=== PATIENT | female | born 2000 | race Caucasian/White ===

== ENCOUNTER 2019-03-16 12:29 | Emergency (ER) | payer SELFPAY ==
[2019-03-16 12:58] VITALS: BP 113/63
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
== END 2019-03-16 13:37 | disposition home or self-care (01) ==
LOC: JP.ED 12:29
DX: S61.432A Puncture wound without foreign body of left hand, initial encounter (principal); Z88.1 Allergy status to other antibiotic agents; Z88.5 Allergy status to narcotic agent; Z88.8 Allergy status to other drugs, medicaments and biological substances; Z79.899 Other long term (current) drug therapy; W26.0XXA Contact with knife, initial encounter; Y99.0 Civilian activity done for income or pay
CPT/HCPCS: 99282

== ENCOUNTER 2020-04-06 18:11 | Emergency (ER) | payer MEDICAID ==
[2020-04-06 18:45] VITALS: BP 126/76; PULSE 73
[2020-04-06] MEDS ORDERED: diphenhydrAMINE 50 MG/ML SDV IM ONE (19:01)
[2020-04-06] MEDS ORDERED: Ketorolac 60 MG/2 ML SDV IM ONE (19:01)
[2020-04-06] MEDS ORDERED: Prochlorperazine 10 MG/2 ML SDV IM ONE (19:01)
--- NOTE | 2020-04-06 19:09 | EDM.PDOC ---
ED HPI GENERAL MEDICAL PROBLEM - General Chief Complaint: Gastrointestinal Problem Stated Complaint: VOMITING, HEADACHE Time Seen by Provider: 04/06/20 18:50 Source of Information: Reports: Patient History Limitations: Reports: No Limitations - History of Present Illness INITIAL COMMENTS - FREE TEXT/NARRATIVE: Ifeoma is a 19 year old female presenting to Er today with acute onset of nausea at 1 am this morning and subsequent headache 30 minutes after onset of nausea. Patient has a history of migraine headaches which were previously treated with Imitrex but she had an allergic reaction including throat swelling. Patient continues to have migraine headaches but is normal able to control her symptoms by lying down with an ice pack and taking a nap usually resolves her symptoms. Current headache did not improve with routine self care. Patient has vomiting approximately 6 times today so has not attempted to take any OTC medications. Patient has chronic neck stiffness without new pain. She has chills and sweats without fever. Patient is currently undergoing work up and treatment for PCOS started BCP 2 weeks ago an anti-depressant. Patient had an ultrasound recent which confirmed PCOS diagnosis. - Related Data Allergies Allergy/AdvReac Type Severity Reaction Status Date / Time doxycycline Allergy Hives Verified 04/06/20 18:46 morphine Allergy Hives Verified 04/06/20 18:46 sumatriptan [From Imitrex] Allergy Airway Verified 04/06/20 18:46 Tightness Home Meds: Home Meds Sertraline [Zoloft] 1 tab PO DAILY 04/06/20 [History] norethindrone ac-eth estradioL [Maureen 21 1-20 Tablet] 1 tab PO DAILY 04/06/20 [ History] Past Medical History Other Respiratory History: Sport induced Asthma Gastrointestinal History: Reports: Cholelithiasis Genitourinary History: Reports: UTI, Recurrent [employer] History: Reports: Neurological History: Reports: Migraines Other Psychiatric History: Post Pardum Depression - Past Surgical History HEENT Surgical History: Reports: Oral Surgery GI Surgical History: Reports: None Neurological Surgical History: Reports: None Social & Family History - Family History Family Medical History: Noncontributory - Tobacco Use Smoking Status *Q: Never Smoker - Caffeine Use Caffeine Use: Reports: Coffee, Soda ED ROS GENERAL - Review of Systems Review Of Systems: Comprehensive ROS is negative, except as noted in HPI. - Physical Exam Exam: See Below Exam Limited By: No Limitations General Appearance: Alert, WD/WN, Moderate Distress (due to headache and nausea in a dark room) Eye Exam: Bilateral Eye: EOMI, Normal Inspection Ears: Hearing Grossly Normal Throat/Mouth: Normal Voice, No Airway Compromise Head Exam: Atraumatic, Normocephalic Neck: Tender Lateral (bilateral ) Respiratory/Chest: No Respiratory Distress, Lungs Clear Cardiovascular: Regular Rate, Rhythm GI/Abdominal: Other (limited exam due to body habitus) Neuro Exam (Abbreviated): Alert (photophobia noted), Oriented, CN II-XII Intact , Normal Cognition, Normal Gait, Normal Reflexes, No Motor/Sensory Deficits Extremities: Normal Inspection, Normal Range of Motion, Non-Tender Psychiatric: Normal Affect, Normal Mood Skin Exam: Warm, Dry, Intact, Normal Color, No Rash Course - Vital Signs Last Recorded V/S: Last Vital Signs Temp 36.4 C 04/06/20 18:52 Pulse 73 04/06/20 18:52 Resp 16 04/06/20 18:52 BP 126/76 04/06/20 18:52 Pulse Ox 100 04/06/20 18:52 - Orders/Labs/Meds Meds: Medications Discontinued Medications Generic Name Dose Route Start Last Admin Trade Name Freq PRN Reason Stop Dose Admin Diphenhydramine HCl 25 mg 04/06/20 19:01 04/06/20 19:11 Benadryl IM 04/06/20 19:02 25 mg ONETIME ONE Administration Ketorolac Tromethamine 60 mg 04/06/20 19:01 04/06/20 19:11 Toradol IM 04/06/20 19:02 60 mg ONETIME ONE Administration Prochlorperazine Edisylate 10 mg 04/06/20 19:01 04/06/20 19:11 Compazine IM 04/06/20 19:02 10 mg ONETIME ONE Administration - Re-Assessments/Exams Free Text/Narrative Re-Assessment/Exam: Headaches was much improved before discharge 04/06/20 20:23 Departure - Departure Time of Disposition: 19:10 Disposition: Home, Self-Care 01 Clinical Impression: Cephalgia - Discharge Information Instructions: Form - Headache Record, Migraine Headache Referrals: Roshni Lopez CNM [Primary Care Provider] - Forms: ED Department Discharge Additional Instructions: 1. DECREASED ACTIVITY X 24 HOURS 2. IBUPROFEN or NAPROXEN (WITH FOOD) as directed for headache and pain. 3. TYLENOL (ACETAMINOPHEN) 4000MG PER 24 HOUR (1000MG EVERY 6 HOURS) for mild pain and fever. 4. If headache reoccurs consider Ibuprofen 800 mg or Naproxen 440 to 500mg, zofran and Benadryl 50mg with a nap in a dark room. 5. CALL PCP THIS WEEK FOR AN APPOINTMENT TO DISCUSS YOUR HEADACHE IF CONTINUES GREATER THAN 72 hour. 6. RETURN FOR INCREASED SYMPTOMS, FEVER, CHANGE IN HEADACHES CHARACTER, NUMBNESS /TINGLING, CHANGING IN VISION, DEHYDRATION DUE TO FREQUENT VOMITING, ANY NEW CONCERNS OR CHANGES. Sepsis Event Note - Evaluation Sepsis Screening Result: No Definite Risk - Focused Exam Vital Signs: Vital Signs Temp Pulse Resp BP Pulse Ox 04/06/20 18:52 36.4 C 73 16 126/76 100 04/06/20 18:43 36.4 C 73 16 126/76 100 Date Exam was Performed: 04/06/20 Time Exam was Performed: 20:22
== END 2020-04-06 21:17 | disposition home or self-care (01) ==
LOC: JP.ED 18:11
DX: R51 Headache (principal); R11.2 Nausea with vomiting, unspecified; Z88.5 Allergy status to narcotic agent; Z88.8 Allergy status to other drugs, medicaments and biological substances; Z79.899 Other long term (current) drug therapy
CPT/HCPCS: 96372; 99284; J0780; J1200; J1885

== ENCOUNTER 2020-08-01 22:06 | Emergency (ER) | payer MEDICAID ==
[2020-08-01 22:26] VITALS: BP 153/95; PULSE 66
--- NOTE | 2020-08-01 23:00 | EDM.PDOC ---
ED HPI GENERAL MEDICAL PROBLEM - General Chief Complaint: Bite:Animal, Insect Stated Complaint: PAIN IN RT ARM/HAND Time Seen by Provider: 08/01/20 22:45 Source of Information: Reports: Patient History Limitations: Reports: No Limitations - History of Present Illness INITIAL COMMENTS - FREE TEXT/NARRATIVE: 20-year-old female had a small pimple on her right forearm, she tried to pop it yesterday but it is now become inflamed with a small amount of red streak extending away from the lesion. No fevers or chills. It is more tender and there is numbness extending down her arm. Onset: Gradual Duration: Day(s): (2 days) Location: Reports: Upper Extremity, Left Associated Symptoms: Reports: No Other Symptoms Left lower arm Pain Score (Numeric/FACES): 6 - Related Data Allergies Allergy/AdvReac Type Severity Reaction Status Date / Time doxycycline Allergy Hives Verified 08/01/20 22:46 morphine Allergy Hives Verified 08/01/20 22:46 sumatriptan [From Imitrex] Allergy Airway Verified 08/01/20 22:46 Tightness Home Meds: Home Meds NK [No Known Home Meds] 08/01/20 [History] Past Medical History Other Respiratory History: Sport induced Asthma Gastrointestinal History: Reports: Cholelithiasis Genitourinary History: Reports: UTI, Recurrent [employer] History: Reports: Neurological History: Reports: Migraines Other Psychiatric History: Post Depression - Past Surgical History HEENT Surgical History: Reports: Oral Surgery Social & Family History - Family History Family Medical History: Noncontributory - Tobacco Use Smoking Status *Q: Never Smoker - Caffeine Use Caffeine Use: Reports: Soda - Recreational Drug Use Recreational Drug Use: No ED ROS GENERAL - Review of Systems Review Of Systems: See Below Constitutional: Denies: Fever, Chills, Malaise Respiratory: Denies: Shortness of Breath Cardiovascular: Denies: Chest Pain GI/Abdominal: Denies: Nausea, Vomiting Skin: Reports: Erythema (As described in HPI) Neurological: Reports: Paresthesia (Some numbness in the left forearm) ED EXAM, ANIMAL BITE - Physical Exam Exam: See Below Exam Limited By: No Limitations General Appearance: Alert, No Apparent Distress Head: Atraumatic Respiratory/Chest: No Respiratory Distress Extremities: Other (The left forearm has a small inflamed papular lesion on the extensor surface of the forearm, with 2-1/2 to 3 cm of surrounding erythema and irritation. There is also 2 distinct lines of erythema extending from the lesion proximally to the elbow) Neurological: Alert, Oriented Psychiatric: Normal Affect, Normal Mood Course - Vital Signs Last Recorded V/S: Last Vital Signs Temp 97.4 F 08/01/20 22:45 Pulse 66 08/01/20 22:45 Resp 16 08/01/20 22:45 BP 153/95 H 08/01/20 22:45 Pulse Ox 97 08/01/20 22:45 - Re-Assessments/Exams Free Text/Narrative Re-Assessment/Exam: 08/01/20 22:58 Appears this patient is some lymphangitis from her manipulation of the small infected hair follicle. She will be placed on Augmentin 875 mg twice daily for 5 days, warm compresses to the area will help but she can recheck in 2 to 3 days if not improving. Departure - Departure Time of Disposition: 23:25 Disposition: Home, Self-Care 01 Clinical Impression: Acute lymphangitis of forearm - Discharge Information Instructions: Cellulitis, Adult Referrals: Roshni Lopez CNM [Primary Care Provider] - Forms: ED Department Discharge Care Plan Goals: Take 1 dose of antibiotic twice daily for 5 days, with food. Warm moist compresses on the infected area will help. Recheck in 2 to 3 days if not improving satisfactorily. Sepsis Event Note (ED) - Evaluation Sepsis Screening Result: No Definite Risk - Focused Exam Vital Signs: Vital Signs Temp Pulse Resp BP Pulse Ox 08/01/20 22:45 97.4 F 66 16 153/95 H 97 08/01/20 22:24 97.4 F 66 16 153/95 H 97
== END 2020-08-01 23:25 | disposition home or self-care (01) ==
LOC: JP.ED 22:06
DX: L03.124 Acute lymphangitis of left upper limb (principal); Z88.1 Allergy status to other antibiotic agents; Z88.5 Allergy status to narcotic agent; Z88.8 Allergy status to other drugs, medicaments and biological substances
CPT/HCPCS: 99283

== ENCOUNTER 2020-08-09 12:33 | Emergency (ER) | payer MEDICAID ==
[2020-08-09 13:05] VITALS: BP 133/75; PULSE 75
--- NOTE | 2020-08-09 13:20 | EDM.PDOC ---
ED HPI GENERAL MEDICAL PROBLEM - General Chief Complaint: Lower Extremity Injury/Pain Stated Complaint: R FOOT INJURY Time Seen by Provider: 08/09/20 13:05 Source of Information: Reports: Patient, RN, RN Notes Reviewed History Limitations: Reports: No Limitations - History of Present Illness INITIAL COMMENTS - FREE TEXT/NARRATIVE: Patient had a 2 x 6 board fall across her foot 08/08 in the evening. Today she continues to have pain and some swelling. No bruising but difficult to bear weight and hard to have a shoe on her foot. Onset: Sudden Onset Date: 08/08/20 Onset Time: 19:30 Duration: Minutes:, Getting Worse Location: Reports: Lower Extremity, Right Quality: Reports: Ache Severity: Moderate Worsens with: Reports: Other (Weightbearing), Movement Context: Reports: Trauma Associated Symptoms: Reports: No Other Symptoms Right Foot Pain Score (Numeric/FACES): 7 - Related Data Allergies Allergy/AdvReac Type Severity Reaction Status Date / Time doxycycline Allergy Hives Verified 08/09/20 13:04 morphine Allergy Hives Verified 08/09/20 13:04 sumatriptan [From Imitrex] Allergy Airway Verified 08/09/20 13:04 Tightness Home Meds: Home Meds NK [No Known Home Meds] 08/01/20 [History] Past Medical History Other Respiratory History: Sport induced Asthma Gastrointestinal History: Reports: Cholelithiasis Genitourinary History: Reports: UTI, Recurrent [employer] History: Reports: Neurological History: Reports: Migraines Other Psychiatric History: Post Depression - Past Surgical History HEENT Surgical History: Reports: Oral Surgery Social & Family History - Family History Family Medical History: Noncontributory - Tobacco Use Smoking Status *Q: Never Smoker - Caffeine Use Caffeine Use: Reports: Soda - Recreational Drug Use Recreational Drug Use: No Review of Systems - Review of Systems Review Of Systems: Comprehensive ROS is negative, except as noted in HPI. ED EXAM, GENERAL - Physical Exam Exam: See Below Exam Limited By: No Limitations General Appearance: Alert, WD/WN, No Apparent Distress Extremities: Other (Lower right foot swelling across top of foot, no bruising noted, tender to touch and palpation). No: Pedal Edema Skin Exam: Warm, Dry, Intact, Normal Color, No Rash Course - Vital Signs Last Recorded V/S: Last Vital Signs Temp 36.2 C 08/09/20 13:04 Pulse 75 08/09/20 13:04 Resp 16 08/09/20 13:04 BP 133/75 08/09/20 13:04 Pulse Ox 97 08/09/20 13:04 - Orders/Labs/Meds Orders: Active Orders 24 hr Category Date Time Status Foot Comp Min 3V Rt [CR] Stat Exams 08/09/20 13:14 Taken - Radiology Interpretation Free Text/Narrative:: right foot xray - preliminary read no fractures, malalignment or deformities noted. Will wait radiology for final read - Re-Assessments/Exams Free Text/Narrative Re-Assessment/Exam: 08/09/20 14:01 Plan for Ibuprofen, rest elevation, and ice to promote comfort. Departure - Departure Time of Disposition: 14:17 Disposition: Home, Self-Care 01 Condition: Fair Clinical Impression: Foot pain, right - Discharge Information *PRESCRIPTION DRUG MONITORING PROGRAM REVIEWED*: Not Applicable *COPY OF PRESCRIPTION DRUG MONITORING REPORT IN PATIENT SAMMY: Not Applicable Instructions: Foot Sprain, Foot Pain Referrals: Roshni Lopez CNM [Primary Care Provider] - Forms: ED Department Discharge Additional Instructions: Ibuprofen 600 mg 3 - 4 times a day for the next 3-4 day to promote comfort, reduce pain and swelling. Insty med Rx of Ibuprofen provided for patient. Care Plan Goals: Followup with PCP or ER if pain worsens become unable to bear weight. Sepsis Event Note (ED) - Evaluation Sepsis Screening Result: No Definite Risk - Focused Exam Vital Signs: Vital Signs Temp Pulse Resp BP Pulse Ox 08/09/20 13:04 36.2 C 75 16 133/75 97 - Problem List Review Problem List Initiated/Reviewed/Updated: Yes - My Orders Last 24 Hours: My Active Orders 08/09/20 13:14 Foot Comp Min 3V Rt [CR] Stat - Assessment/Plan Last 24 Hours: My Active Orders 08/09/20 13:14 Foot Comp Min 3V Rt [CR] Stat Assessment:: Rt foot injury without fracture/dislocation noted on xray Plan: Ibuprofen 600 mg every 6-8 hours for pain. Rest, elevate and Ice to help reduce swelling and pain. Note provided for employer to allow for rest periods over the next 2-3 days.
--- NOTE | 2020-08-11 09:33 | CR ---
FOOT RIGHT 3 views CLINICAL HISTORY:Fall FINDINGS:There is no fracture or dislocation. No radiopaque foreign body seen Impression: Negative
== END 2020-08-09 14:17 | disposition home or self-care (01) ==
LOC: JP.ED 12:33
DX: M79.671 Pain in right foot (principal); Z88.1 Allergy status to other antibiotic agents; Z88.5 Allergy status to narcotic agent; Z88.8 Allergy status to other drugs, medicaments and biological substances
CPT/HCPCS: 73630-26-RT; 73630-RT; 99282; 99283

== ENCOUNTER 2021-01-22 19:55 | Emergency (ER) | payer MEDICAID ==
[2021-01-22 20:11] VITALS: BP 132/80; PULSE 89
--- NOTE | 2021-01-22 21:21 | EDM.PDOC ---
ED HPI GENERAL MEDICAL PROBLEM - General Chief Complaint: Back Pain or Injury Stated Complaint: R SIDE BACK PAIN Time Seen by Provider: 01/22/21 20:23 Source of Information: Reports: Patient History Limitations: Reports: No Limitations - History of Present Illness INITIAL COMMENTS - FREE TEXT/NARRATIVE: Ifeoma is a 20-year-old female presenting to the ED with acute onset of right flank pain that started just prior to urinating this afternoon. Patient states that after urinating her pain subsided but then returned several hours later when she had to urinate again. Her second attempt and urinated resulted in marked increase in pain causing her to curl over in a ball for a short amount of time. Patient is currently 9 weeks and is is considered a high risk due to polycystic ovarian syndrome and 4 miscarriages. She denies any fever or chills. She has nausea related to morning sickness but denies any vomiting today. 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 She denies any heavy lifting. Her pain is pinpoint to the right lateral upper abdomen lower chest just at the level of the ninth rib. Right Flank Pain Score (Numeric/FACES): 4 - Related Data Allergies Allergy/AdvReac Type Severity Reaction Status Date / Time doxycycline Allergy Hives Verified 01/22/21 20:00 morphine Allergy Hives Verified 01/22/21 20:00 sumatriptan [From Imitrex] Allergy Airway Verified 01/22/21 20:00 Tightness Home Meds: Home Meds Pnv No.103/Folic/Om3s/Fish Oil [ Gummies] 2 tab PO DAILY 01/22/21 [History] Progesterone, Micronized [Progesterone] 1 cap PO BID 01/22/21 [History] Past Medical History Other Respiratory History: Sport induced Asthma Gastrointestinal History: Reports: Cholelithiasis Genitourinary History: Reports: UTI, 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 Adnoids GI Surgical History: Reports: Cholecystectomy Female Surgical History: Reports: None Neurological Surgical History: Reports: None Social & Family History - Family History Family Medical History: No Pertinent Family History - Tobacco Use Tobacco Use Status *Q: Former Tobacco User Used Tobacco, but Quit: Yes Month/Year Tobacco Last Used: 11/2018 - Caffeine Use Caffeine Use: Reports: Soda - Recreational Drug Use Recreational Drug Use: No ED ROS GENERAL - Review of Systems Review Of Systems: See Below Constitutional: Reports: No Symptoms HEENT: Reports: No Symptoms Respiratory: Reports: No Symptoms Cardiovascular: Reports: No Symptoms Endocrine: Reports: No Symptoms GI/Abdominal: Reports: Abdominal Pain, Nausea (To morning sickness) : Reports: Flank Pain, Frequency, Urgency Musculoskeletal: Reports: No Symptoms Skin: Reports: No Symptoms Neurological: Reports: No Symptoms Psychiatric: Reports: No Symptoms Hematologic/Lymphatic: Reports: No Symptoms Immunologic: Reports: No Symptoms ED EXAM, GENERAL - Physical Exam Exam: See Below Exam Limited By: No Limitations General Appearance: Alert, No Apparent Distress Eye Exam: Bilateral Eye: EOMI, PERRL Head: Atraumatic, Normocephalic Neck: Normal Inspection, Supple, Non-Tender, Full Range of Motion Respiratory/Chest: No Respiratory Distress, Lungs Clear, Normal Breath Sounds Cardiovascular: Normal Peripheral Pulses, Regular Rate, Rhythm, No Murmur GI/Abdominal: Normal Bowel Sounds, Soft, Non-Tender, Other (Focal tenderness over the right lateral abdominal wall at the level of the ninth rib. This is reproducible by palpation. There is no CVA tenderness to percussion.) Back Exam: Normal Inspection, Full Range of Motion Extremities: Normal Inspection, Normal Range of Motion Neurological: Alert, Oriented, Normal Cognition, No Motor/Sensory Deficits Psychiatric: Normal Affect, Normal Mood Skin Exam: Warm, Dry, Intact, Normal Color, No Rash. No: Ecchymosis Lymphatic: No Adenopathy Course - Vital Signs Last Recorded V/S: Last Vital Signs Temp 36.4 C 01/22/21 20:09 Pulse 89 01/22/21 20:09 Resp 16 01/22/21 20:09 BP 132/80 01/22/21 20:09 Pulse Ox 99 01/22/21 20:09 - Orders/Labs/Meds Labs: Laboratory Tests 01/22/21 Range/Units 20:27 Urine Color Yellow (YELLOW) Urine Appearance Cloudy A (CLEAR) Urine pH 5.5 (5.0-8.0) Ur Specific [place] >= 1.030 (1.008-1.030) Urine Protein Negative (NEGATIVE) mg/dL Urine Glucose (UA) Negative (NEGATIVE) mg/dL Urine Ketones Trace H (NEGATIVE) mg/dL Urine Occult Blood Moderate H (NEGATIVE) Urine Nitrite Negative (NEGATIVE) Urine Bilirubin Negative (NEGATIVE) Urine Urobilinogen 2.0 H (0.2-1.0) EU/dL Ur Leukocyte Esterase Small H (NEGATIVE) Urine RBC 20-30 H (0-5) Urine WBC 10-20 H (0-5) Ur Epithelial Cells Moderate Amorphous Sediment Not seen Urine Bacteria Many Urine Mucus Few - Radiology Interpretation Free Text/Narrative:: Performed a limited OB ultrasound at the bedside for evaluation of heart rate as this is a high risk with 4 previous miscarriages. Although her previous miscarriages have been before 7 weeks and she is currently at 9 weeks. She is followed by Roshni Lopez on a biweekly basis. Her last ultrasound was 2 weeks ago and measured 7 weeks 1 day. Today the ultrasound was to obtain heart rate which was 173 bpm per M-mode technique. Doppler was not used. The placenta is posterior without any obvious evidence for a subchorionic hemorrhage. Patient has not had any bleeding. - Re-Assessments/Exams Free Text/Narrative Re-Assessment/Exam: 01/22/21 21:24 I reviewed the ultrasound with the patient and at this time and feel that the this is viable with a heart rate of 173 bpm. The patient's exam is more telling of abdominal wall tenderness with reproduction of pain with pa lpation over the lateral wall of the abdomen at the ninth rib. This is likely due to a strain of the core muscles. Urinalysis was obtained and shows significant pyuria with positive leukocyte esterase significant for urinary tract infection. We will put the patient on Macrobid 100 mg twice daily for 7 days. She is scheduled to follow-up with Roshni Lopez and will contact her to let her know about the urinalysis results. At this time the patient is suitable for discharge home. She may use Tylenol for pain control. Indications return to ED were discussed. All questions were answered prior to discharge. Departure - Departure Time of Disposition: 21:15 Disposition: Home, Self-Care 01 Clinical Impression: Acute right flank pain, Urinary tract infection affecting care of mother in first trimester, antepartum - Discharge Information *PRESCRIPTION DRUG MONITORING PROGRAM REVIEWED*: Not Applicable *COPY OF PRESCRIPTION DRUG MONITORING REPORT IN PATIENT SAMMY: Not Applicable Instructions: and Urinary Tract Infection, Flank Pain, Adult, Abdominal Pain During Referrals: Roshni Lopez CNM [Primary Care Provider] - Forms: ED Department Discharge Care Plan Goals: Your work-up today shows normal activity with a heart rate of 173 bpm. I did not do a biomedical physical so I did not check for dates, however, there was adequate fluid and a sizable placenta in the posterior position. Urinalysis is significant for urinary tract infection which we will treat with Macrobid 1 tablet twice daily for 7 days. I would like you to follow-up with Roshni as needed. Please return to the ED if your symptoms worsen, you develop fever, nausea, vomiting, or increasing pain. Sepsis Event Note (ED) - Evaluation Sepsis Screening Result: No Definite Risk - Focused Exam Vital Signs: Vital Signs Temp Pulse Resp BP Pulse Ox 01/22/21 20:09 36.4 C 89 16 132/80 99 - Problem List & Annotations (1) Acute right flank pain SNOMED Code(s): 863310187, 235455448 Code(s): R10.9 - UNSPECIFIED ABDOMINAL PAIN Status: Acute Priority: Medium Current Visit: Yes (2) Urinary tract infection affecting care of mother in first trimester, antepartum SNOMED Code(s): 766212493, 637301799 Code(s): O23.41 - UNSP INFCT OF URINARY TRACT IN , FIRST TRIMESTER Status: Acute Priority: Medium Current Visit: Yes - Problem List Review Problem List Initiated/Reviewed/Updated: Yes
== END 2021-01-22 21:28 | disposition home or self-care (01) ==
LOC: JP.ED 19:55
DX: O23.41 Unspecified infection of urinary tract in pregnancy, first trimester (principal); Z88.1 Allergy status to other antibiotic agents; Z88.5 Allergy status to narcotic agent; Z88.8 Allergy status to other drugs, medicaments and biological substances; Z87.891 Personal history of nicotine dependence; Z3A.09 9 weeks gestation of pregnancy
CPT/HCPCS: 81001; 99283; 99284-25

== ENCOUNTER 2021-08-11 11:51 | Inpatient (IN) | payer MEDICAID ==
[2021-08-11] MEDS ORDERED: Misoprostol 50 MCG (1/2 of 100 MCG) Tab VAG ONE (12:11)
[2021-08-11] MEDS ORDERED: Sodium Chloride 0.9% 10 ML Syringe FLUSH PRN (12:13)
--- NOTE | 2021-08-11 12:56 | PCM.LDHP ---
L&D History of Present Illness - General Date of Service: 08/11/21 Admit Problem/Dx: Admission Diagnosis/Problem Admission Diagnosis/Problem Source of Information: Patient History Limitations: Reports: No Limitations - History of Present Illness Introduction:: 08/11/21 Ifeoma is a here at 37 6/7 weeks for induction of labor for IUGR with increased cord Doppler S/D ratio of 3.8. [facility] in [facility] was consulted on this case and induction was recommended. The 95% for cord doppler at 37 weeks is 3.4. Baby was 9% on last US one week ago. She is O positive blood type, GBS negative, Hep C/B/HIV/RPR all non reactive and rubella immune. She was seen one month ago at [facility] for a growth US and this was >20%. She is anticipating a boy. One prior of a 5 lb 10 oz baby a 40 weeks. Patient was given the option to go to [facility] for confirmation ultrasound and she declines. Timing/Duration: Reports: unsure - Related Data Allergies/Adverse Reactions: Allergies Allergy/AdvReac Type Severity Reaction Status Date / Time doxycycline Allergy Hives Verified 01/22/21 20:00 morphine Allergy Hives Verified 01/22/21 20:00 sumatriptan [From Imitrex] Allergy Airway Verified 01/22/21 20:00 Tightness Home Medications: Home Meds Pnv No.103/Folic/Om3s/Fish Oil [ Gummies] 2 tab PO DAILY 01/22/21 [History] Metoclopramide HCl [Reglan] 10 mg PO TID 08/05/21 [History] Prochlorperazine [Compazine] 5 mg PO Q6H PRN 08/05/21 [History] Pyridoxine HCl [Vitamin B-6] 25 mg PO TID 08/05/21 [History] Sertraline [Zoloft] 50 mg PO DAILY 08/05/21 [History] busPIRone [Buspar] 10 mg PO BEDTIME 08/05/21 [History] Past Medical History Other Respiratory History: Sport induced Asthma Gastrointestinal History: Reports: Cholelithiasis Genitourinary History: Reports: UTI, Recurrent 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 Adnoids GI Surgical History: Reports: Cholecystectomy Female Surgical History: Reports: None Neurological Surgical History: Reports: None Social & Family History - Family History Family Medical History: No Pertinent Family History - Tobacco Use Tobacco Use Within Last Twelve Months: No - Caffeine Use Caffeine Use: Reports: Soda H&P Review of Systems - Review of Systems: Review Of Systems: See Below General: Reports: No Symptoms HEENT: Reports: No Symptoms Pulmonary: Reports: No Symptoms Cardiovascular: Reports: No Symptoms Gastrointestinal: Reports: No Symptoms Genitourinary: Reports: No Symptoms Musculoskeletal: Reports: No Symptoms Skin: Reports: No Symptoms Psychiatric: Reports: No Symptoms Neurological: Reports: No Symptoms Hematologic/Lymphatic: Reports: No Symptoms Immunologic: Reports: No Symptoms L&D Exam - Exam Exam: See Below - OB Specific Contraction Intensity: none Movement: Active Heart Tones: Present Heart Tones per Min: 130 Heart Rate (FHR) Variability: Moderate (6-25 bpm) Presentation: Vertex - Macias Score Macias Score Cervix Position: Posterior Macias Score Consistency: Soft Macias Score Effacement: 51-70% Macias Score Dilation: 1-2 cm Macias Score Infant's Station: -2 Macias Score Total: 6 - Exam General: Alert, Oriented HEENT: PERRLA Neck: Supple, Trachea Midline Lungs: Clear to Auscultation, Normal Respiratory Effort Cardiovascular: Regular Rate, Regular Rhythm GI/Abdominal Exam: Normal Bowel Sounds, Soft, Non-Tender, Pelvis Stable Rectal Exam: Normal Exam Genitourinary: Normal external exam, Cervical dilitation, Enlarged uterus. No: Vaginal bleeding Back Exam: Normal Inspection, Full Range of Motion Extremities: Normal Inspection, Normal Range of Motion, Non-Tender, No Pedal Edema, Normal Capillary Refill Skin: Warm, Dry, Intact Neurological: Cranial Nerves Intact, Reflexes Equal Bilateral Psychiatric: Alert, Normal Affect, Normal Mood - Patient Data Lab Results Last 24 hrs: Laboratory Results - last 24 hr 08/11/21 08/11/21 08/11/21 Range/Units 12:24 12:28 12:28 WBC 8.1 (4.5-11.0) K/uL RBC 4.26 (3.30-5.50) M/uL Hgb 12.2 (12.0-15.0) g/dL Hct 36.9 (36.0-48.0) % MCV 87 (80-98) fL MCH 29 (27-31) pg MCHC 33 (32-36) % Plt Count 269 (150-400) K/uL Neut % (Auto) 77.8 H (36-66) % Lymph % (Auto) 17.1 L (24-44) % [place] % (Auto) 3.9 (2-6) % Eos % (Auto) 1.0 L (2-4) % Baso % (Auto) 0.2 (0-1) % Urine Color Yellow (YELLOW) Urine Appearance Cloudy A (CLEAR) Urine pH 6.5 (5.0-8.0) Ur Specific [place] >= 1.030 (1.008-1.030) Urine Protein Trace H (NEGATIVE) mg/dL Urine Glucose (UA) Negative (NEGATIVE) mg/dL Urine Ketones Negative (NEGATIVE) mg/dL Urine Occult Blood Large H (NEGATIVE) Urine Nitrite Negative (NEGATIVE) Urine Bilirubin Negative (NEGATIVE) Urine Urobilinogen 0.2 (0.2-1.0) EU/dL Ur Leukocyte Esterase Moderate H (NEGATIVE) Urine RBC 40-50 H (0-5) Urine WBC 20-30 H (0-5) Ur Epithelial Cells Moderate Amorphous Sediment Few Urine Bacteria Many Urine Mucus Not seen SARS CoV-2 RNA Rapid ROLAND Negative Result Diagrams: 08/11/21 12:24 - Problem List (1) IUGR (intrauterine growth restriction) affecting care of mother SNOMED Code(s): 958079148 ICD Code: O36.5990 - MATERN CARE FOR OTH OR SUSP POOR FETL GRTH, UNSP TRI, UNSP Status: Acute Current Visit: Yes (2) Encounter for induction of labor SNOMED Code(s): 966456679 ICD Code: Z34.90 - ENCNTR FOR SUPRVSN OF NORMAL , UNSP, UNSP TRIMESTER Status: Acute Current Visit: Yes (3) with 37 or more completed weeks gestation SNOMED Code(s): 59766427 ICD Code: XBA8931 - Status: Acute Current Visit: Yes Problem List Initiated/Reviewed/Updated: Yes Orders Last 24hrs: Active Orders 24 hr Category Date Time Status Sodium Chloride 0.9% [Saline Flush] Med 08/11/21 12:13 Active 10 ml FLUSH ASDIRECTED PRN Saline Lock Insert [OM.PC] Routine Oth 08/11/21 12:13 Ordered Medication Orders Sodium Chloride (Sodium Chloride 0.9% 10 Ml Syringe) 10 ml FLUSH ASDIRECTED PRN PRN Reason: Keep Vein Open Assessment/Plan Comment:: 08/11/21 at 37 6/7 weeks with IUGR and increased S/D ration >95% today Growth one week ago 9% BPP and NST 08/23 GBS negative SVE /-2 Plan: Cytotec 50 mcg inserted vaginally Anticipate
--- NOTE | 2021-08-11 16:40 | PCM.PNLD ---
<Melita Garcia - Last Filed: 08/11/21 16:35> Labor Progress Note - VS & Meds Vital Signs: Last Vital Signs Temp Pulse 87 08/11/21 13:42 Resp BP 128/79 08/11/21 13:42 Pulse Ox 98 08/11/21 12:08 Active Medications: Current Medications Sodium Chloride (Sodium Chloride 0.9% 10 Ml Syringe) 10 ml FLUSH ASDIRECTED PRN PRN Reason: Keep Vein Open Discontinued Medications Misoprostol (Misoprostol 50 Mcg (1/2 Of 100 Mcg) Tab) 50 mcg VAG ONETIME ONE Stop: 08/11/21 12:12 Last Admin: 08/11/21 12:38 Dose: 50 mcg Documented by: - Uterine Contractions Uterine Monitoring Mode: External [place] Contraction Frequency (min): 2-3 Contraction Duration (sec): 50-90 Contraction Intensity: Mild Uterine Resting Tone: Soft - Monitoring Monitor Mode: External Ultrasound Heart Rate (FHR) Baseline: 135 Heart Rate (FHR) Variability: Moderate (6-25 bpm) Accelerations: Present, 15x15 Decelerations: None Strip Review: Category I - Vaginal Exam Dilation (cm): 2 Effacement (Percent): 75 Station: -1 Cervical Position: Midposition Sterile Vaginal Exam Performed By: Jackie Garcia - Labor Progress (Free Text) Labor Progress: 08/11/21 Ifeoma is feeling more uncomfortable but is managing contractions well with walking/movement. SVE at 1630 is 2/75/-2, mid position and soft. EFM shows a category 1 strip, and contractions every 3ish minutes. Plan will be to continue to monitor contraction pattern and EFM. FOB will be back soon, but she is coping well. <Roshni Lopez - Last Filed: 08/11/21 17:43> Labor Progress Note - VS & Meds Vital Signs: Last Vital Signs Temp Pulse 75 08/11/21 16:13 Resp BP 131/78 08/11/21 16:13 Pulse Ox 97 08/11/21 14:51 Active Medications: Current Medications Sodium Chloride (Sodium Chloride 0.9% 10 Ml Syringe) 10 ml FLUSH ASDIRECTED PRN PRN Reason: Keep Vein Open Discontinued Medications Misoprostol (Misoprostol 50 Mcg (1/2 Of 100 Mcg) Tab) 50 mcg VAG ONETIME ONE Stop: 08/11/21 12:12 Last Admin: 08/11/21 12:38 Dose: 50 mcg Documented by:
--- NOTE | 2021-08-11 21:11 | PCM.PNLD ---
<JoseSylviaMelita A - Last Filed: 08/11/21 21:05> Labor Progress Note - VS & Meds Vital Signs: Last Vital Signs Temp 97.8 F 08/11/21 19:10 Pulse 67 08/11/21 19:10 Resp 16 08/11/21 19:10 BP 129/77 08/11/21 19:10 Pulse Ox 96 08/11/21 19:10 Active Medications: Current Medications Oxytocin/Sodium Chloride (Pitocin In Ns 20 Units/1,000 Ml) 20 unit in 1,000 mls @ 6 mls/hr IV TITRATE DANGELO; Protocol Sodium Chloride (Sodium Chloride 0.9% 10 Ml Syringe) 10 ml FLUSH ASDIRECTED PRN PRN Reason: Keep Vein Open Discontinued Medications Misoprostol (Misoprostol 50 Mcg (1/2 Of 100 Mcg) Tab) 50 mcg VAG ONETIME ONE Stop: 08/11/21 12:12 Last Admin: 08/11/21 12:38 Dose: 50 mcg Documented by: - Uterine Contractions Uterine Monitoring Mode: External [place] Contraction Frequency (min): 2-5 Contraction Duration (sec): 35 - 65 Contraction Intensity: Moderate Uterine Resting Tone: Soft - Monitoring Monitor Mode: External Ultrasound Heart Rate (FHR) Baseline: 125 Heart Rate (FHR) Variability: Moderate (6-25 bpm) Accelerations: Present, 15x15 Decelerations: None Strip Review: Category I - Vaginal Exam Dilation (cm): 6 Effacement (Percent): 80 Station: -1 Cervical Position: Anterior Sterile Vaginal Exam Performed By: Jackie Garcia - Labor Progress (Free Text) Labor Progress: 08/11/21 Ifeoma is resting mostly comfortably in bed. She states that the contractions are uncomfortable but manageable with position change/movement. EFM shows category 1 and ctx every 2-5min. SVE 6/80/-1. She is going to call her to come back to the hospital and the plan will be to start pitocin to improve the contraction pattern. <Roshni Lopez - Last Filed: 08/14/21 08:09> Labor Progress Note - VS & Meds Vital Signs: Last Vital Signs Temp 36.5 C 08/13/21 07:00 Pulse 72 08/13/21 07:00 Resp 16 08/13/21 07:00 BP 110/61 08/13/21 07:00 Pulse Ox 99 08/13/21 07:00 Active Medications: Current Medications Discontinued Medications Acetaminophen (Acetaminophen 325 Mg Tab, 50 Tab Bulk Bottle) 0 mg PO Q4H PRN PRN Reason: Pain Last Admin: 08/12/21 00:46 Dose: 1 bottle Documented by: Benzocaine (Benzocaine 20% Top [place] 56 Gm Bottle) 0 gm TOP Q4H PRN PRN Reason: Perineal Comfort Measure Last Admin: 08/12/21 00:46 Dose: 1 bottle Documented by: Docusate Sodium (Docusate Sodium 100 Mg Cap) 100 mg PO BID PRN PRN Reason: Constipation Emollient Ointment (Lanolin 100% Cream 40 Gm Tube) 1 gm TOP ASDIRECTED PRN PRN Reason: Sore Nipples Last Admin: 08/12/21 00:46 Dose: 1 tube Documented by: Fentanyl (Fentanyl 100 Mcg/2 Ml Sdv) Confirm Administered Dose 100 mcg .ROUTE .STK-MED ONE Stop: 08/11/21 23:19 Last Admin: 08/11/21 23:36 Dose: Not Given Documented by: Fentanyl (Fentanyl 100 Mcg/2 Ml Sdv) 50 mcg IVPUSH ONETIME ONE Stop: 08/11/21 23:23 Last Admin: 08/11/21 23:21 Dose: 50 mcg Documented by: Fentanyl (Fentanyl 100 Mcg/2 Ml Sdv) 50 mcg IVPUSH ONETIME ONE Stop: 08/11/21 23:31 Last Admin: 08/11/21 23:36 Dose: 50 mcg Documented by: Oxytocin/Sodium Chloride (Pitocin In Ns 20 Units/1,000 Ml) 20 unit in 1,000 mls @ 6 mls/hr IV TITRATE DANGELO; Protocol Last Titration: 08/11/21 23:11 Dose: 333 munits/min, 999 mls/hr Documented by: Sodium Chloride (Normal Saline) 1,000 mls @ 50 mls/hr IV ASDIRECTED DANGELO Last Admin: 08/11/21 21:29 Dose: 50 mls/hr Documented by: Ibuprofen (Ibuprofen 200 Mg Tab, 24 Tab Bulk Bottle) 600 mg PO Q6H PRN PRN Reason: Pain Last Admin: 08/12/21 00:45 Dose: 1 bottle Documented by: Lidocaine HCl (Lidocaine 1% 50 Ml Mdv) Confirm Administered Dose 100 ml .ROUTE .STK-MED ONE Stop: 08/11/21 23:19 Last Admin: 08/11/21 23:37 Dose: Not Given Documented by: Lidocaine HCl (Lidocaine 1% 20 Ml Mdv) 5 ml INJECT ONETIME ONE Stop: 08/11/21 23:23 Last Admin: 08/11/21 23:33 Dose: 5 ml Documented by: Misoprostol (Misoprostol 50 Mcg (1/2 Of 100 Mcg) Tab) 50 mcg VAG ONETIME ONE Stop: 08/11/21 12:12 Last Admin: 08/11/21 12:38 Dose: 50 mcg Documented by: Sodium Chloride (Sodium Chloride 0.9% 10 Ml Syringe) 10 ml FLUSH ASDIRECTED PRN PRN Reason: Keep Vein Open Witch Mishel (Witch Mishel Medicated Pads 100/Jar) 1 pad TOP ASDIRECTED PRN PRN Reason: Hemorrhoids Last Admin: 08/12/21 00:46 Dose: 1 pkg Documented by: - Labor Progress (Free Text) Labor Progress: I have personally reviewed this assessment and note and have also assessed the patient myself and agree with the above by PAULINE Briggs. Roshni Lopez CNM
[2021-08-11] MEDS ORDERED: Sodium Chloride 0.9% 1,000 ML IV SCH (21:30)
[2021-08-11] MEDS ORDERED: Lidocaine 1% 50 ML MDV ONE (23:18)
[2021-08-11] MEDS ORDERED: fentaNYL 100 MCG/2 ML SDV ONE (23:18)
[2021-08-11] MEDS ORDERED: Lidocaine 1% 20 ML MDV INJECT ONE (23:22)
[2021-08-11] MEDS ORDERED: fentaNYL 100 MCG/2 ML SDV IVPUSH ONE ×2 (23:22→23:30)
[2021-08-11] MEDS ORDERED: Witch Hazel Medicated Pads 100/Jar TOP PRN (23:52)
[2021-08-11] MEDS ORDERED: Benzocaine 20% Top Spray 56 GM Bottle TOP PRN (23:52)
[2021-08-11] MEDS ORDERED: Docusate Sodium 100 MG Cap PO PRN (23:52)
[2021-08-11] MEDS ORDERED: Lanolin 100% Cream 40 GM Tube TOP PRN (23:52)
[2021-08-11] MEDS ORDERED: Ibuprofen 200 MG Tab, 24 Tab Bulk Bottle PO PRN (23:56)
[2021-08-11] MEDS ORDERED: Acetaminophen 325 MG Tab, 50 Tab Bulk Bottle PO PRN (23:56)
--- NOTE | 2021-08-12 00:06 | PCM.DEL ---
L & D Note - General Info Date of Service: 08/11/21 Mother's Due Date: 08/26/21 - Delivery Note Labor: Augmented by ARM Cervical Ripening Method: Misoprostil Delivery Outcome: Livebirth Delivery Method: Spontaneous Vaginal Delivery-Single Infant Delivery Mode: Spontaneous Presentation: Right Occiput Anterior (JENNIFER) Nuchal Cord: Present (loose, delivered through) Anesthesia Type: Nitrous Oxide Anesthetic: Lidocaine (Xylocaine) 1% Plain Local Anesthetic Volume: Other (8 cc) Amniotic Fluid Description: Bloody Episiotomy Type: None Laceration: 2nd Degree, Labial (left) Suture type: Vicryl Suture size: 3-0 Placenta: Intact, Spontaneous Cord: 3 Vessels Estimated Blood Loss: 300 Resuscitation Needed: No : [place] Used Provider: Roshni Lopez Score 1 min: 9 Score 5 min: 9 Second Stage Interventions: Reports: Second Nurse Assessed Progress of Descent, Second Nurse Reviewed Contraction Pattern, Second Nurse Reviewed Heart Tones, Pushing Effectively, Pushing, Pulls Own Legs Back Delivery Comments (Free Text/Narrative):: 08/12/21 21 yo G5 now P2 delivered viable male infant at 2308. She was induced today for IUGR with abnormal cord doppler readings >95%. She was given one dose of vaginal cytotec 50 mcg and progressed nicely on her own to 6 cm. She then was not feeling contractions as strong and they had spaced some and so low dose pitocin was used for augmentation. She used the tub and nitrous for pain control. Category 1 tracing through labor. AROM was done at 8 cm for clear/light bloody fluid. She progressed quickly and pushed well. She delivered male in JENNIFER position. He cried spontaneously and was placed on her chest. Delayed cord clamping for 2 minutes. Apgars 9, 9. Placenta delivered spontaneously, intact, 3 vessel cord. Marginal cord insertion but otherwise healthy looking placenta, somewhat small for gestational age. EBL 300 ml. Baby remains on mothers chest and is nursing. Mother and baby in stable condition. Mother had a second degree tear and a left labial tear that were both repaired with 3-0 vicryl and plain lidocaine. Stages of labor: 1: 9851-7905 2: [id number] 3: 4165-5998 Induction Criteria - Macias Score Macias Score Dilation: 1-2 cm Macias Score Effacement: 60-70% Macias Score Infant's Station: -2 Macias Score Consistency: Soft Macias Score Cervix Position: Posterior Macias Score Total: 6 Macias Score Presenting Part: Reports: Cephalic - Induction Gestational Age >/= 39 wks: No Medical Indication: IUGR S/D ratio 3.8 today Estimated Pelvis: Reports: Adequate Reassuring Monitoring Strip: Yes Absence of Tachy Systole: Yes - Augmentation Estimated Pelvis: Reports: Adequate Weight Estimated:: Reports: SGA Estimated Weight if LGA: 2.495 kg Reassuring Monitoring Strip: Yes Absence of Tachy Systole: Yes - General Info Date of Service: 08/12/21 Functional Status: Reports: Pain Controlled - Review of Systems General: Reports: No Symptoms HEENT: Reports: No Symptoms Pulmonary: Reports: No Symptoms Cardiovascular: Reports: No Symptoms Gastrointestinal: Reports: No Symptoms Genitourinary: Reports: No Symptoms Musculoskeletal: Reports: No Symptoms Skin: Reports: No Symptoms Neurological: Reports: No Symptoms Psychiatric: Reports: No Symptoms - Patient Data Vitals - Most Recent: Last Vital Signs Temp 36.6 C 08/11/21 19:10 Pulse 67 08/11/21 19:10 Resp 16 08/11/21 19:10 BP 129/77 08/11/21 19:10 Pulse Ox 96 08/11/21 22:00 Weight - Most Recent: 102.058 kg I&O - Last 24 Hours: Intake & Output 08/11/21 08/11/21 08/12/21 14:59 22:59 06:59 Intake Total 1000 Balance 1000 Lab Results Last 24 Hours: Laboratory Results - last 24 hr 08/11/21 08/11/21 08/11/21 Range/Units 12:24 12:28 12:28 WBC 8.1 (4.5-11.0) K/uL RBC 4.26 (3.30-5.50) M/uL Hgb 12.2 (12.0-15.0) g/dL Hct 36.9 (36.0-48.0) % MCV 87 (80-98) fL MCH 29 (27-31) pg MCHC 33 (32-36) % Plt Count 269 (150-400) K/uL Neut % (Auto) 77.8 H (36-66) % Lymph % (Auto) 17.1 L (24-44) % B[place] % (Auto) 3.9 (2-6) % Eos % (Auto) 1.0 L (2-4) % Baso % (Auto) 0.2 (0-1) % Urine Color Yellow (YELLOW) Urine Appearance Cloudy A (CLEAR) Urine pH 6.5 (5.0-8.0) Ur Specific [place] >= 1.030 (1.008-1.030) Urine Protein Trace H (NEGATIVE) mg/dL Urine Glucose (UA) Negative (NEGATIVE) mg/dL Urine Ketones Negative (NEGATIVE) mg/dL Urine Occult Blood Large H (NEGATIVE) Urine Nitrite Negative (NEGATIVE) Urine Bilirubin Negative (NEGATIVE) Urine Urobilinogen 0.2 (0.2-1.0) EU/dL Ur Leukocyte Esterase Moderate H (NEGATIVE) Urine RBC 40-50 H (0-5) Urine WBC 20-30 H (0-5) Ur Epithelial Cells Moderate Amorphous Sediment Few Urine Bacteria Many Urine Mucus Not seen SARS CoV-2 RNA Rapid ROLAND Negative Med Orders - Current: Current Medications Acetaminophen (Acetaminophen 325 Mg Tab, 50 Tab Bulk Bottle) 0 mg PO Q4H PRN PRN Reason: Pain Benzocaine (Benzocaine 20% Top [place] 56 Gm Bottle) 0 gm TOP Q4H PRN PRN Reason: Perineal Comfort Measure Docusate Sodium (Docusate Sodium 100 Mg Cap) 100 mg PO BID PRN PRN Reason: Constipation Emollient Ointment (Lanolin 100% Cream 40 Gm Tube) 1 gm TOP ASDIRECTED PRN PRN Reason: Sore Nipples Oxytocin/Sodium Chloride (Pitocin In Ns 20 Units/1,000 Ml) 20 unit in 1,000 mls @ 6 mls/hr IV TITRATE DANGELO; Protocol Last Admin: 08/11/21 21:29 Dose: 2 munits/min, 6 mls/hr Documented by: Sodium Chloride (Normal Saline) 1,000 mls @ 50 mls/hr IV ASDIRECTED DANGELO Last Admin: 08/11/21 21:29 Dose: 50 mls/hr Documented by: Sodium Chloride (Sodium Chloride 0.9% 10 Ml Syringe) 10 ml FLUSH ASDIRECTED PRN PRN Reason: Keep Vein Open Witch Mishel (Witch Mishel Medicated Pads 100/Jar) 1 pad TOP ASDIRECTED PRN PRN Reason: Hemorrhoids Discontinued Medications Fentanyl (Fentanyl 100 Mcg/2 Ml Sdv) Confirm Administered Dose 100 mcg .ROUTE .STK-MED ONE Stop: 08/11/21 23:19 Last Admin: 08/11/21 23:36 Dose: Not Given Documented by: Fentanyl (Fentanyl 100 Mcg/2 Ml Sdv) 50 mcg IVPUSH ONETIME ONE Stop: 08/11/21 23:23 Last Admin: 08/11/21 23:21 Dose: 50 mcg Documented by: Fentanyl (Fentanyl 100 Mcg/2 Ml Sdv) 50 mcg IVPUSH ONETIME ONE Stop: 08/11/21 23:31 Last Admin: 08/11/21 23:36 Dose: 50 mcg Documented by: Lidocaine HCl (Lidocaine 1% 50 Ml Mdv) Confirm Administered Dose 100 ml .ROUTE .STK-MED ONE Stop: 08/11/21 23:19 Last Admin: 08/11/21 23:37 Dose: Not Given Documented by: Lidocaine HCl (Lidocaine 1% 20 Ml Mdv) 5 ml INJECT ONETIME ONE Stop: 08/11/21 23:23 Last Admin: 08/11/21 23:33 Dose: 5 ml Documented by: Misoprostol (Misoprostol 50 Mcg (1/2 Of 100 Mcg) Tab) 50 mcg VAG ONETIME ONE Stop: 08/11/21 12:12 Last Admin: 08/11/21 12:38 Dose: 50 mcg Documented by: - Exam General: Alert, Oriented HEENT: Pupils Equal, Pupils Reactive, Mucous Membr. Moist/[place] Neck: Supple Lungs: Clear to Auscultation, Normal Respiratory Effort Cardiovascular: Regular Rate, Regular Rhythm GI/Abdominal Exam: Normal Bowel Sounds, Soft, No Mass, Pelvis Stable (Female) Exam: Normal External Exam, Normal Bimanual Exam, Cervical Dilatation, Vaginal Bleeding. No: Cervical Lesions Back Exam: Normal Inspection, Full Range of Motion Extremities: Normal Inspection, Normal Range of Motion, Non-Tender, No Pedal Edema, Normal Capillary Refill Skin: Warm, Dry, Intact Neurological: No New Focal Deficit Psy/Mental Status: Alert, Normal Affect, Normal Mood - Problem List & Annotations (1) IUGR (intrauterine growth restriction) affecting care of mother SNOMED Code(s): 212558418 Code(s): O36.5990 - MATERN CARE FOR OTH OR SUSP POOR FETL GRTH, UNSP TRI, UNSP Status: Acute Current Visit: Yes (2) Encounter for induction of labor SNOMED Code(s): 848505449 Code(s): Z34.90 - ENCNTR FOR SUPRVSN OF NORMAL , UNSP, UNSP TRIMESTER Status: Acute Current Visit: Yes (3) with 37 or more completed weeks gestation SNOMED Code(s): 16398953 Code(s): HDE9400 - Status: Acute Current Visit: Yes (4) Vaginal delivery SNOMED Code(s): 118546275 Code(s): O80 - ENCOUNTER FOR FULL-TERM UNCOMPLICATED DELIVERY Status: Acute Current Visit: Yes (5) Second degree perineal laceration during delivery SNOMED Code(s): 6947571 Code(s): O70.1 - SECOND DEGREE PERINEAL LACERATION DURING DELIVERY Status: Acute Current Visit: Yes - Problem List Review Problem List Initiated/Reviewed/Updated: Yes - My Orders Last 24 Hours: My Active Orders 08/11/21 Breakfast Regular Diet [DIET] 08/11/21 12:13 Sodium Chloride 0.9% [Saline Flush] 10 ml FLUSH ASDIRECTED PRN Saline Lock Insert [OM.PC] Routine 08/11/21 21:15 Oxytocin/Normal Saline [Pitocin in NS 20 Units/1,000 ML] 20 unit in 1,000 ml IV TITRATE 08/11/21 21:23 Communication Order [RC] Per Unit Routine Communication Order [RC] Per Unit Routine Communication Order [RC] Per Unit Routine Communication Order [RC] Per Unit Routine Nitrous Oxide Delivery [RC] ASDIRECTED Oxygen Therapy [RC] ASDIRECTED Pulse Oximetry [RC] ASDIRECTED Verify Patient Consent Obtain [RC] ASDIRECTED Vital Signs [RC] PER UNIT ROUTINE Medication Discontinuation Instructions [OM.PC] Routine 08/11/21 21:30 Sodium Chloride 0.9% [Normal Saline] 1,000 ml IV ASDIRECTED 08/11/21 23:52 Patient Status [ADT] Routine May Shower [RC] ASDIRECTED Up ad Jennifer [RC] ASDIRECTED Vital Signs [RC] PFP Consult to Computer Technical Support Specialist [CONS] Routine Benzocaine [[id number] 20% [place]] See Dose Instructions TOP Q4H PRN Docusate Sodium [Colace] 100 mg PO BID PRN Lanolin [Lansinoh HPA] 1 gm TOP ASDIRECTED PRN witch Mishel [Tucks] 1 pad TOP ASDIRECTED PRN Assess Lochia [WOMSER] Per Unit Routine Assess Uterine Involution [WOMSER] Per Unit Routine DVT/VTE Prophylaxis Reflex [OM.PC] Routine Resuscitation Status Routine 08/11/21 23:53 Ice Therapy [OM.PC] Per Unit Routine Perineal Care [OM.PC] Per Unit Routine Sitz Bath [OM.PC] Per Unit Routine 08/11/21 23:55 VTE/DVT Education [RC] Click to Edit 08/11/21 23:56 Acetaminophen [Tylenol Bulk Bottle] See Dose Instructions PO Q4H PRN Ibuprofen [Motrin Bulk Bottle] 600 mg PO Q6H PRN 08/12/21 05:11 CBC WITH AUTO DIFF [HEME] AM - Assessment Assessment:: 08/12/21 with of viable male GBS negative EBL 300 ml 2nd degree and left labial repaired - Plan Plan:: 08/11/21 at 37 6/7 weeks with IUGR and increased S/D ration >95% today Growth one week ago 9% BPP and NST 10/ GBS negative SVE / Plan: Cytotec 50 mcg inserted vaginally Anticipate 08/12/21 Routine cares support Anticipate 24-48 hour stay
--- NOTE | 2021-08-12 08:32 | PCM.PNPP ---
- General Info Date of Service: 08/12/21 - Review of Systems General: Reports: No Symptoms HEENT: Reports: No Symptoms Pulmonary: Reports: No Symptoms Cardiovascular: Reports: No Symptoms Gastrointestinal: Reports: No Symptoms Genitourinary: Reports: No Symptoms Musculoskeletal: Reports: No Symptoms Skin: Reports: No Symptoms Neurological: Reports: No Symptoms Psychiatric: Reports: No Symptoms - General Info Date of Service: 08/12/21 - Patient Data Vital Signs - Most Recent: Last Vital Signs Temp 36.8 C 08/12/21 03:00 Pulse 58 L 08/12/21 03:00 Resp 16 08/12/21 03:00 BP 126/81 08/12/21 03:00 Pulse Ox 98 08/12/21 03:00 Weight - Most Recent: 102.058 kg I&O - Last 24 Hours: Intake & Output 08/11/21 08/12/21 08/12/21 22:59 06:59 14:59 Intake Total 1000 500 Balance 1000 500 Lab Results - Last 24 Hours: Laboratory Results - last 24 hr 08/11/21 08/11/21 08/11/21 Range/Units 12:24 12:28 12:28 WBC 8.1 (4.5-11.0) K/uL RBC 4.26 (3.30-5.50) M/uL Hgb 12.2 (12.0-15.0) g/dL Hct 36.9 (36.0-48.0) % MCV 87 (80-98) fL MCH 29 (27-31) pg MCHC 33 (32-36) % Plt Count 269 (150-400) K/uL Neut % (Auto) 77.8 H (36-66) % Lymph % (Auto) 17.1 L (24-44) % [place] % (Auto) 3.9 (2-6) % Eos % (Auto) 1.0 L (2-4) % Baso % (Auto) 0.2 (0-1) % Urine Color Yellow (YELLOW) Urine Appearance Cloudy A (CLEAR) Urine pH 6.5 (5.0-8.0) Ur Specific [place] >= 1.030 (1.008-1.030) Urine Protein Trace H (NEGATIVE) mg/dL Urine Glucose (UA) Negative (NEGATIVE) mg/dL Urine Ketones Negative (NEGATIVE) mg/dL Urine Occult Blood Large H (NEGATIVE) Urine Nitrite Negative (NEGATIVE) Urine Bilirubin Negative (NEGATIVE) Urine Urobilinogen 0.2 (0.2-1.0) EU/dL Ur Leukocyte Esterase Moderate H (NEGATIVE) Urine RBC 40-50 H (0-5) Urine WBC 20-30 H (0-5) Ur Epithelial Cells Moderate Amorphous Sediment Few Urine Bacteria Many Urine Mucus Not seen SARS CoV-2 RNA Rapid ROLAND Negative 08/12/21 Range/Units 05:54 WBC 15.0 H (4.5-11.0) K/uL RBC 3.89 (3.30-5.50) M/uL Hgb 11.3 L (12.0-15.0) g/dL Hct 33.7 L (36.0-48.0) % MCV 87 (80-98) fL MCH 29 (27-31) pg MCHC 34 (32-36) % Plt Count 265 (150-400) K/uL Neut % (Auto) 81.4 H (36-66) % Lymph % (Auto) 11.6 L (24-44) % [place] % (Auto) 6.8 H (2-6) % Eos % (Auto) 0.1 L (2-4) % Baso % (Auto) 0.1 (0-1) % Urine Color (YELLOW) Urine Appearance (CLEAR) Urine pH (5.0-8.0) Ur Specific [place] (1.008-1.030) Urine Protein (NEGATIVE) mg/dL Urine Glucose (UA) (NEGATIVE) mg/dL Urine Ketones (NEGATIVE) mg/dL Urine Occult Blood (NEGATIVE) Urine Nitrite (NEGATIVE) Urine Bilirubin (NEGATIVE) Urine Urobilinogen (0.2-1.0) EU/dL Ur Leukocyte Esterase (NEGATIVE) Urine RBC (0-5) Urine WBC (0-5) Ur Epithelial Cells Amorphous Sediment Urine Bacteria Urine Mucus SARS CoV-2 RNA Rapid ROLAND Med Orders - Current: Current Medications Acetaminophen (Acetaminophen 325 Mg Tab, 50 Tab Bulk Bottle) 0 mg PO Q4H PRN PRN Reason: Pain Last Admin: 08/12/21 00:46 Dose: 1 bottle Documented by: Benzocaine (Benzocaine 20% Top [place] 56 Gm Bottle) 0 gm TOP Q4H PRN PRN Reason: Perineal Comfort Measure Last Admin: 08/12/21 00:46 Dose: 1 bottle Documented by: Docusate Sodium (Docusate Sodium 100 Mg Cap) 100 mg PO BID PRN PRN Reason: Constipation Emollient Ointment (Lanolin 100% Cream 40 Gm Tube) 1 gm TOP ASDIRECTED PRN PRN Reason: Sore Nipples Last Admin: 08/12/21 00:46 Dose: 1 tube Documented by: Oxytocin/Sodium Chloride (Pitocin In Ns 20 Units/1,000 Ml) 20 unit in 1,000 mls @ 6 mls/hr IV TITRATE DANGELO; Protocol Last Titration: 08/11/21 23:11 Dose: 333 munits/min, 999 mls/hr Documented by: Sodium Chloride (Normal Saline) 1,000 mls @ 50 mls/hr IV ASDIRECTED DANGELO Last Admin: 08/11/21 21:29 Dose: 50 mls/hr Documented by: Ibuprofen (Ibuprofen 200 Mg Tab, 24 Tab Bulk Bottle) 600 mg PO Q6H PRN PRN Reason: Pain Last Admin: 08/12/21 00:45 Dose: 1 bottle Documented by: Sodium Chloride (Sodium Chloride 0.9% 10 Ml Syringe) 10 ml FLUSH ASDIRECTED PRN PRN Reason: Keep Vein Open Witch Mishel (Witch Mishel Medicated Pads 100/Jar) 1 pad TOP ASDIRECTED PRN PRN Reason: Hemorrhoids Last Admin: 08/12/21 00:46 Dose: 1 pkg Documented by: Discontinued Medications Fentanyl (Fentanyl 100 Mcg/2 Ml Sdv) Confirm Administered Dose 100 mcg .ROUTE .STK-MED ONE Stop: 08/11/21 23:19 Last Admin: 08/11/21 23:36 Dose: Not Given Documented by: Fentanyl (Fentanyl 100 Mcg/2 Ml Sdv) 50 mcg IVPUSH ONETIME ONE Stop: 08/11/21 23:23 Last Admin: 08/11/21 23:21 Dose: 50 mcg Documented by: Fentanyl (Fentanyl 100 Mcg/2 Ml Sdv) 50 mcg IVPUSH ONETIME ONE Stop: 08/11/21 23:31 Last Admin: 08/11/21 23:36 Dose: 50 mcg Documented by: Lidocaine HCl (Lidocaine 1% 50 Ml Mdv) Confirm Administered Dose 100 ml .ROUTE .STK-MED ONE Stop: 08/11/21 23:19 Last Admin: 08/11/21 23:37 Dose: Not Given Documented by: Lidocaine HCl (Lidocaine 1% 20 Ml Mdv) 5 ml INJECT ONETIME ONE Stop: 08/11/21 23:23 Last Admin: 08/11/21 23:33 Dose: 5 ml Documented by: Misoprostol (Misoprostol 50 Mcg (1/2 Of 100 Mcg) Tab) 50 mcg VAG ONETIME ONE Stop: 08/11/21 12:12 Last Admin: 08/11/21 12:38 Dose: 50 mcg Documented by: - Infant Interaction Disposition, : [place] in Room with Family Interaction: Holding Infant Infant Feeding: Breastfed ; Nursed Well Support Person: - Recovery Exam Fundal Tone: Firm Fundal Level: 1 Fingerbreadths Below Umbilicus Fundal Placement: Midline Lochia Amount: Moderate Lochia Color: Rubra/Red Perineum Description: Intact, Minimal Bruising/Swelling Episiotomy/Laceration: Approximated Bladder Status: Voiding - Exam General: Alert, Oriented HEENT: Pupils Equal, Pupils Reactive, EOMI, Mucous Membr. Moist/[place] Neck: Supple Lungs: Clear to Auscultation, Normal Respiratory Effort Cardiovascular: Regular Rate, Regular Rhythm GI/Abdominal Exam: Normal Bowel Sounds, Soft, Non-Tender, No Organomegaly, No Distention, No Abnormal Bruit, No Mass, Pelvis Stable Extremities: Normal Inspection, Normal Range of Motion, Non-Tender, No Pedal Edema, Normal Capillary Refill Skin: Warm, Dry, Intact Neurological: No New Focal Deficit Psy/Mental Status: Alert, Normal Affect, Normal Mood - Problem List & Annotations (1) (infant) SNOMED Code(s): 404880479 Code(s): Z78.9 - OTHER SPECIFIED HEALTH STATUS Status: Acute Current Visit: Yes (2) IUGR (intrauterine growth restriction) affecting care of mother SNOMED Code(s): 060151756 Code(s): O36.5990 - MATERN CARE FOR OTH OR SUSP POOR FETL GRTH, UNSP TRI, UNSP Status: Acute Current Visit: Yes Qualifiers: Fetus number: single or unspecified fetus (3) with 37 or more completed weeks gestation SNOMED Code(s): 58730476 Code(s): XSY2601 - Status: Acute Current Visit: Yes (4) Vaginal delivery SNOMED Code(s): 832490270 Code(s): O80 - ENCOUNTER FOR FULL-TERM UNCOMPLICATED DELIVERY Status: Acute Current Visit: Yes (5) Second degree perineal laceration during delivery SNOMED Code(s): 3171302 Code(s): O70.1 - SECOND DEGREE PERINEAL LACERATION DURING DELIVERY Status: Acute Current Visit: Yes - Problem List Review Problem List Initiated/Reviewed/Updated: Yes - Assessment Assessment:: 08/12/21 with of viable male GBS negative EBL 300 ml 2nd degree and left labial repaired 08/13/21 Day One GBS negative 2nd degree and left labial repaired-minimal swelling Fundus firm and bleeding decreasing Voiding and Passing gas - Plan Plan:: 08/11/21 at 37 6/7 weeks with IUGR and increased S/D ration >95% today Growth one week ago 9% BPP and NST 10/10 GBS negative SVE / Plan: Cytotec 50 mcg inserted vaginally Anticipate 08/12/21 Routine cares support Anticipate 24-48 hour stay 08/13/21 Continue routine cares support Anticipate 24-48 hour stay
--- NOTE | 2021-08-13 08:48 | PCM.PNPP ---
- General Info Date of Service: 08/13/21 Functional Status: Reports: Pain Controlled - Review of Systems General: Reports: No Symptoms HEENT: Reports: No Symptoms Pulmonary: Reports: No Symptoms Cardiovascular: Reports: No Symptoms Gastrointestinal: Reports: No Symptoms Genitourinary: Reports: No Symptoms Musculoskeletal: Reports: No Symptoms Skin: Reports: No Symptoms Neurological: Reports: No Symptoms Psychiatric: Reports: No Symptoms - General Info Date of Service: 08/13/21 - Patient Data Vital Signs - Most Recent: Last Vital Signs Temp 36.4 C 08/12/21 21:52 Pulse 70 08/12/21 21:52 Resp 16 08/12/21 21:52 BP 114/75 08/12/21 21:52 Pulse Ox 99 08/12/21 21:52 Weight - Most Recent: 102.058 kg I&O - Last 24 Hours: Intake & Output 08/12/21 08/13/21 08/13/21 22:59 06:59 14:59 Intake Total 500 Balance 500 Med Orders - Current: Current Medications Acetaminophen (Acetaminophen 325 Mg Tab, 50 Tab Bulk Bottle) 0 mg PO Q4H PRN PRN Reason: Pain Last Admin: 08/12/21 00:46 Dose: 1 bottle Documented by: Benzocaine (Benzocaine 20% Top [place] 56 Gm Bottle) 0 gm TOP Q4H PRN PRN Reason: Perineal Comfort Measure Last Admin: 08/12/21 00:46 Dose: 1 bottle Documented by: Docusate Sodium (Docusate Sodium 100 Mg Cap) 100 mg PO BID PRN PRN Reason: Constipation Emollient Ointment (Lanolin 100% Cream 40 Gm Tube) 1 gm TOP ASDIRECTED PRN PRN Reason: Sore Nipples Last Admin: 08/12/21 00:46 Dose: 1 tube Documented by: Oxytocin/Sodium Chloride (Pitocin In Ns 20 Units/1,000 Ml) 20 unit in 1,000 mls @ 6 mls/hr IV TITRATE DANGELO; Protocol Last Titration: 08/11/21 23:11 Dose: 333 munits/min, 999 mls/hr Documented by: Sodium Chloride (Normal Saline) 1,000 mls @ 50 mls/hr IV ASDIRECTED DANGELO Last Admin: 08/11/21 21:29 Dose: 50 mls/hr Documented by: Ibuprofen (Ibuprofen 200 Mg Tab, 24 Tab Bulk Bottle) 600 mg PO Q6H PRN PRN Reason: Pain Last Admin: 08/12/21 00:45 Dose: 1 bottle Documented by: Sodium Chloride (Sodium Chloride 0.9% 10 Ml Syringe) 10 ml FLUSH ASDIRECTED PRN PRN Reason: Keep Vein Open Witch Mishel (Witch Mishel Medicated Pads 100/Jar) 1 pad TOP ASDIRECTED PRN PRN Reason: Hemorrhoids Last Admin: 08/12/21 00:46 Dose: 1 pkg Documented by: Discontinued Medications Fentanyl (Fentanyl 100 Mcg/2 Ml Sdv) Confirm Administered Dose 100 mcg .ROUTE .STK-MED ONE Stop: 08/11/21 23:19 Last Admin: 08/11/21 23:36 Dose: Not Given Documented by: Fentanyl (Fentanyl 100 Mcg/2 Ml Sdv) 50 mcg IVPUSH ONETIME ONE Stop: 08/11/21 23:23 Last Admin: 08/11/21 23:21 Dose: 50 mcg Documented by: Fentanyl (Fentanyl 100 Mcg/2 Ml Sdv) 50 mcg IVPUSH ONETIME ONE Stop: 08/11/21 23:31 Last Admin: 08/11/21 23:36 Dose: 50 mcg Documented by: Lidocaine HCl (Lidocaine 1% 50 Ml Mdv) Confirm Administered Dose 100 ml .ROUTE .STK-MED ONE Stop: 08/11/21 23:19 Last Admin: 08/11/21 23:37 Dose: Not Given Documented by: Lidocaine HCl (Lidocaine 1% 20 Ml Mdv) 5 ml INJECT ONETIME ONE Stop: 08/11/21 23:23 Last Admin: 08/11/21 23:33 Dose: 5 ml Documented by: Misoprostol (Misoprostol 50 Mcg (1/2 Of 100 Mcg) Tab) 50 mcg VAG ONETIME ONE Stop: 08/11/21 12:12 Last Admin: 08/11/21 12:38 Dose: 50 mcg Documented by: - Interaction Infant Disposition, : in Room with Family Infant Interaction: Holding Feeding: Breastfed Infant; Nursed Well Support Person: - Recovery Exam Fundal Tone: Firm Fundal Level: 2 Fingerbreadths Below Umbilicus Fundal Placement: Midline Lochia Amount: Small Lochia Color: Rubra/Red Perineum Description: Intact, Minimal Bruising/Swelling Episiotomy/Laceration: Approximated Bladder Status: Voiding - Exam General: Alert, Oriented, Cooperative HEENT: Pupils Equal, Pupils Reactive, EOMI, Mucous Membr. Moist/[place] Neck: Supple Lungs: Clear to Auscultation, Normal Respiratory Effort Cardiovascular: Regular Rate, Regular Rhythm GI/Abdominal Exam: Normal Bowel Sounds, Soft, Non-Tender, No Organomegaly, No Distention, No Abnormal Bruit, No Mass, Pelvis Stable Extremities: Normal Inspection, Normal Range of Motion, Non-Tender, No Pedal Edema, Normal Capillary Refill Skin: Warm, Dry, Intact Wound/Incisions: Healing Well Neurological: No New Focal Deficit Psy/Mental Status: Alert, Normal Affect, Normal Mood - Problem List & Annotations (1) (infant) SNOMED Code(s): 757123148 Code(s): Z78.9 - OTHER SPECIFIED HEALTH STATUS Status: Acute Current Visit: Yes (2) IUGR (intrauterine growth restriction) affecting care of mother SNOMED Code(s): 740790357 Code(s): O36.5990 - MATERN CARE FOR OTH OR SUSP POOR FETL GRTH, UNSP TRI, UNSP Status: Acute Current Visit: Yes Qualifiers: Fetus number: single or unspecified fetus (3) with 37 or more completed weeks gestation SNOMED Code(s): 05619525 Code(s): CNH5039 - Status: Acute Current Visit: Yes (4) Vaginal delivery SNOMED Code(s): 264940405 Code(s): O80 - ENCOUNTER FOR FULL-TERM UNCOMPLICATED DELIVERY Status: Acute Current Visit: Yes (5) Second degree perineal laceration during delivery SNOMED Code(s): 2805502 Code(s): O70.1 - SECOND DEGREE PERINEAL LACERATION DURING DELIVERY Status: Acute Current Visit: Yes - Problem List Review Problem List Initiated/Reviewed/Updated: Yes - Assessment Assessment:: 08/12/21 with of viable male infant GBS negative EBL 300 ml 2nd degree and left labial repaired 08/12/21 Day One GBS negative 2nd degree and left labial repaired-minimal swelling Fundus firm and bleeding decreasing Voiding and Passing gas 08/13/21 Day Two GBS negative 2nd degree and left labial repaired-minimal swelling Fundus firm and bleeding decreasing Hgb-11.3 Voiding and Passing gas Mother desires discharge - Plan Plan:: 08/11/21 at 37 6/7 weeks with IUGR and increased S/D ration >95% today Growth one week ago 9% BPP and NST 08/23 GBS negative SVE / Plan: Cytotec 50 mcg inserted vaginally Anticipate 08/12/21 Routine cares support Anticipate 24-48 hour stay 08/12/21 Continue routine cares support Anticipate 24-48 hour stay 08/13/21 Continue routine cares Continue support Discharge today, can room in
[2021-08-13 09:09] VITALS: BP 110/61; PULSE 72
== END 2021-08-13 13:40 | disposition home or self-care (01) | DRG 807 ==
LOC: JP.OB 11:51 → OBSVTOIN 23:08 → JP.MS 08-12 03:00
PROVIDERS: ADMIT Advanced Practice Midwife; ATTEND Advanced Practice Midwife
PROC: 10E0XZZ Delivery of Products of Conception, External Approach (ICD-10-PCS; principal; 2021-08-11)
PROC: 0KQM0ZZ Repair Perineum Muscle, Open Approach (ICD-10-PCS; 2021-08-11)
PROC: 10907ZC Drainage of Amniotic Fluid, Therapeutic from Products of Conception, Via Natural or Artificial Opening (ICD-10-PCS; 2021-08-11)
PROC: 3E0P7VZ Introduction of Hormone into Female Reproductive, Via Natural or Artificial Opening (ICD-10-PCS; 2021-08-11)
DX: O36.5930 Maternal care for other known or suspected poor fetal growth, third trimester, not applicable or unspecified (principal); Z37.0 Single live birth; O99.344 Other mental disorders complicating childbirth; F32.9 Major depressive disorder, single episode, unspecified; O69.81X0 Labor and delivery complicated by cord around neck, without compression, not applicable or unspecified; O70.1 Second degree perineal laceration during delivery; Z20.822 Contact with and (suspected) exposure to COVID-19; Z3A.37 37 weeks gestation of pregnancy; Z88.5 Allergy status to narcotic agent; Z88.1 Allergy status to other antibiotic agents; Z79.899 Other long term (current) drug therapy; Z90.49 Acquired absence of other specified parts of digestive tract
CPT/HCPCS: 36415; 81001; 85025; A9270-GY; J2590; J3010; J7030; U0002

== ENCOUNTER 2021-09-26 21:29 | Emergency (ER) | payer MEDICAID ==
[2021-09-26 23:06] VITALS: BP 122/77
[2021-09-26 23:35] VITALS: PULSE 137
[2021-09-27] MEDS ORDERED: cefTRIAXone 1 GM Vial IM ONE (00:23)
[2021-09-27] MEDS ORDERED: Acetaminophen 325 MG Tab PO ONE (00:25)
--- NOTE | 2021-09-27 00:31 | EDM.PDOC ---
ED HPI GENERAL MEDICAL PROBLEM - General Chief Complaint: General Stated Complaint: FEVER, TENDER RT BREAST Time Seen by Provider: 09/27/21 00:26 Source of Information: Reports: Patient - History of Present Illness INITIAL COMMENTS - FREE TEXT/NARRATIVE: pt arrived with pain in her rt breast. It has been so painful that she has not been able to nurse. Onset: Today, Sudden Duration: Other (pt developed marked chilling. ) Location: Reports: Other ( pt has pain in the rt breast. ) Associated Symptoms: Reports: Fever/Chills - Related Data Allergies Allergy/AdvReac Type Severity Reaction Status Date / Time doxycycline Allergy Hives Verified 09/26/21 23:03 morphine Allergy Hives Verified 09/26/21 23:03 sumatriptan [From Imitrex] Allergy Airway Verified 09/26/21 23:03 Tightness Home Meds: Home Meds Pnv No.103/Folic/Om3s/Fish Oil [ Gummies] 2 tab PO DAILY 01/22/21 [History] Past Medical History HEENT History: Reports: None Other Respiratory History: Sport induced Asthma Gastrointestinal History: Reports: Cholelithiasis Genitourinary History: Reports: UTI, Recurrent AUT[employer] DAMAGE [employer] History: Reports: Polycystic Ovaries, , Spontaneous Neurological History: Reports: Migraines Psychiatric History: Reports: Other (See Below) Other Psychiatric History: Post Depression Endocrine/Metabolic History: Reports: Obesity/BMI 30+ - Infectious Disease History Infectious Disease History: Reports: Chicken Pox - Past Surgical History HEENT Surgical History: Reports: Oral Surgery Other HEENT Surgeries/Procedures: teeth pulled and upper gum removal. Adnoids Respiratory Surgical History: Reports: None GI Surgical History: Reports: Cholecystectomy Female Surgical History: Reports: None Neurological Surgical History: Reports: None Social & Family History - Family History Family Medical History: No Pertinent Family History - Tobacco Use Tobacco Use Status *Q: Never Tobacco User - Caffeine Use Caffeine Use: Reports: None ED ROS GENERAL - Review of Systems Review Of Systems: See Below Constitutional: Reports: Fever, Chills, Malaise HEENT: Reports: No Symptoms Respiratory: Reports: No Symptoms Cardiovascular: Reports: No Symptoms Endocrine: Reports: No Symptoms GI/Abdominal: Reports: No Symptoms : Reports: No Symptoms Musculoskeletal: Reports: No Symptoms Skin: Reports: Other ( rt breast is very tender. There is mild redness. She did do some pumping at home. ) Neurological: Reports: No Symptoms Psychiatric: Reports: Agitation ED EXAM, GENERAL - Physical Exam Exam: See Below Free Text/Narrative:: pt arrived with a fever and a painful l rt breasr. Exam Limited By: No Limitations General Appearance: Alert, Anxious Ears: Normal TMs Nose: Normal Inspection Throat/Mouth: Normal Inspection Head: Atraumatic Neck: Normal Inspection Respiratory/Chest: No Respiratory Distress Cardiovascular: Regular Rate, Rhythm (Female) Exam: Deferred Rectal (Female) Exam: Deferred Extremities: Normal Inspection Neurological: Alert, Oriented Skin Exam: Other (pt has a very tender and mildly red rt breast. ) Course - Vital Signs Last Recorded V/S: Last Vital Signs Temp 37.3 C 09/26/21 23:06 Pulse 137 H 09/26/21 23:34 Resp 20 09/26/21 23:34 BP 122/77 09/26/21 23:06 Pulse Ox 96 09/26/21 23:34 - Orders/Labs/Meds Orders: Active Orders 24 hr Category Date Time Status Acetaminophen [TylenoL] Med 09/27/21 00:25 Once 650 mg PO NOW ONE Labs: Laboratory Tests 09/26/21 Range/Units 23:35 WBC 18.1 H (4.5-11.0) K/uL RBC 4.86 (3.30-5.50) M/uL Hgb 13.6 D (12.0-15.0) g/dL Hct 41.3 (36.0-48.0) % MCV 85 (80-98) fL MCH 28 (27-31) pg MCHC 33 (32-36) % Plt Count 268 (150-400) K/uL Meds: Medications Discontinued Medications Generic Name Dose Route Start Last Admin Trade Name Freq PRN Reason Stop Dose Admin Ceftriaxone Sodium 1 gm 09/27/21 00:23 Ceftriaxone 1 Gm Vial IM 09/27/21 00:24 ONETIME ONE Lidocaine HCl 5 ml 09/27/21 00:25 Lidocaine 1% 5 Ml Sdv INJECT 09/27/21 00:26 ONETIME ONE - Re-Assessments/Exams Free Text/Narrative Re-Assessment/Exam: 09/27/21 00:30 wbc is 18,00.0 09/27/21 00:31 pt was given rocephen 1 gm im. Departure - Departure Time of Disposition: 00:31 Disposition: Home, Self-Care 01 Condition: Fair Clinical Impression: Mastitis - Discharge Information Referrals: Roshni Lopez CNM [Primary Care Provider] - Care Plan Goals: moist warm packs to the breast, nurse or pump to keep the breast emptied out, keflex 500mg qid, tylenol for temp and discomfort. Sepsis Event Note (ED) - Focused Exam Vital Signs: Vital Signs Temp Pulse Resp BP Pulse Ox 09/26/21 23:34 137 H 20 96 09/26/21 23:06 37.3 C 145 H 20 122/77 97 09/26/21 23:05 37.3 C 145 H 20 122/77 97 - My Orders Last 24 Hours: My Active Orders 09/27/21 00:25 Acetaminophen [TylenoL] 650 mg PO NOW ONE - Assessment/Plan Last 24 Hours: My Active Orders 09/27/21 00:25 Acetaminophen [TylenoL] 650 mg PO NOW ONE
== END 2021-09-27 00:57 | disposition home or self-care (01) ==
LOC: JP.ED 21:29
DX: N61.0 Mastitis without abscess (principal); E66.9 Obesity, unspecified; Z88.1 Allergy status to other antibiotic agents; Z88.5 Allergy status to narcotic agent; Z88.8 Allergy status to other drugs, medicaments and biological substances; Z68.38 Body mass index [BMI] 38.0-38.9, adult
CPT/HCPCS: 36415; 85027; 96372; 99283; A9270; J0696

== ENCOUNTER 2022-06-11 20:29 | Emergency (ER) | payer MEDICAID ==
[2022-06-11 21:32] VITALS: BP 128/85; PULSE 102
[2022-06-11] MEDS ORDERED: Ondansetron 4 MG Tab.DIS PO ONE (21:54)
[2022-06-11 22:32] LABS: ESTIMATED GFR 106 mL/min (>60)
[2022-06-11] MEDS ORDERED: Dexamethasone 4 MG/ML SDV PO ONE (22:50)
== END 2022-06-11 23:05 | disposition home or self-care (01) ==
LOC: JP.ED 20:29
DX: U07.1 COVID-19 (principal); E66.9 Obesity, unspecified; Z68.41 Body mass index [BMI] 40.0-44.9, adult; Z88.1 Allergy status to other antibiotic agents; Z88.6 Allergy status to analgesic agent; Z88.8 Allergy status to other drugs, medicaments and biological substances; Z79.899 Other long term (current) drug therapy; Z90.49 Acquired absence of other specified parts of digestive tract
CPT/HCPCS: 36415; 80053; 82728; 83605; 83615; 84145; 85025; 85379; 86140; 99283; J8540; Q0162; 99281

== ENCOUNTER 2023-03-01 20:35 | Emergency (ER) | payer MEDICAID ==
[2023-03-01 20:51] VITALS: BP 134/94; PULSE 82
[2023-03-01] MEDS ORDERED: diphenhydrAMINE 50 MG/ML SDV IM ONE (21:19)
[2023-03-01] MEDS ORDERED: Albuterol/Ipratropium 3.0-0.5 MG/3 ML Neb Soln NEB ONE (21:19)
== END 2023-03-01 22:01 | disposition home or self-care (01) ==
LOC: JP.ED 20:35
DX: Z77.098 Contact with and (suspected) exposure to other hazardous, chiefly nonmedicinal, chemicals (principal); E66.9 Obesity, unspecified; Z88.5 Allergy status to narcotic agent; Z88.1 Allergy status to other antibiotic agents; Z88.8 Allergy status to other drugs, medicaments and biological substances; Z86.16 Personal history of COVID-19; Z68.39 Body mass index [BMI] 39.0-39.9, adult
CPT/HCPCS: 94640; 96372; 99283; J1200; J7620

== ENCOUNTER 2024-04-01 09:32 | Emergency (ER) | payer MEDICAID, OTHER ==
[2024-04-01 09:54] VITALS: BP 129/81; PULSE 110
[2024-04-01 10:18] LABS: STREP A BY PCR DETECTED (NOT DETECT)
[2024-04-01 10:27] LABS: CORONAVIRUS COVID-19 NAA NEGATIVE (NEGATIVE); INFLUENZA A NAA NEGATIVE (NEGATIVE); INFLUENZA B NAA NEGATIVE (NEGATIVE); RESPIRATORY SYNCYTIAL VIR NAA NEGATIVE (NEGATIVE)
== END 2024-04-01 10:55 | disposition home or self-care (01) ==
LOC: JP.ED 09:32
DX: J02.0 Streptococcal pharyngitis (principal); Z88.5 Allergy status to narcotic agent; Z88.8 Allergy status to other drugs, medicaments and biological substances; Z86.16 Personal history of COVID-19; Z90.49 Acquired absence of other specified parts of digestive tract
CPT/HCPCS: 0241U; 87651; 99283